=== PATIENT | female | born 1950 | race Caucasian/White ===

== ENCOUNTER 2018-11-26 08:53 | Day surgery (SDC) | payer OTHER ==
--- NOTE | 2018-11-22 15:16 | RAD REPORT ---
EXAM DESCRIPTION: RAD - Chest Pa And Lat (2 Views) - 11/22/2018 2:39 pm CLINICAL HISTORY: preop Chest pain. COMPARISON: No comparisons FINDINGS: The lungs are mildly hyperexpanded but clear. The heart is mildly enlarged in size. No dis placed fractures. Aortic atherosclerosis. IMPRESSION: Mild COPD.
[2018-11-22 15:46] LABS: Absolute Lymphocytes (CBC) 1.4 K/uL (0.7-4.9); Basophils % 0.8 % (0-1.3); Lymphocytes % 22.7 % (15.3-44.8); MPV 8.5 fL (7.6-11.3)
[2018-11-22 15:57] LABS: Potassium 4.2 mmol/L (3.5-5.1)
--- NOTE | 2018-11-23 08:39 | EKG ---
Test Date: 2018-11-22 Test Time: 14:16:33 County Records Management Officer: OFELIA MEASUREMENT RESULTS: Intervals: Rate: 57 MD: 154 QRSD: 98 QT: 434 QTc: 422 Scalf: P: 42 MD: 154 QRS: 9 T: 24 INTERPRETIVE STATEMENTS: Sinus bradycardia Otherwise normal ECG No previous ECG available for comparison Electronically Signed On 11-23-18 08:38:55 CDT by Martin Hilton
[~2018-11-26 08:53] MED LIST: FENTANYL CITR 100 MCG/2 ML ONE; LIDOCAINE 2% MPF 5 ML VIAL ONE; MIDAZOLAM HCL 2 MG/2 ML INJ ONE; ONDANSETRON 4 MG/2 ML VIAL ONE; PROPOFOL 200 MG/20 ML VIAL IV ONE; ROCURONIUM 50 MG/5 ML VIAL IV ONE
[2018-11-26] MEDS ORDERED: CEFAZOLIN/SWI 1gm 1 GM/10 ML SYR ONE (09:01)
[2018-11-26] MEDS ORDERED: Ringers Lactate 1,000 ML IV ONE ×3 (09:01→11:29)
[2018-11-26] MEDS ORDERED: GLYCOPYRROLATE 0.2 MG/ML SYR ONE ×2 (10:39→10:42)
[2018-11-26] MEDS ORDERED: NS 0.9% VIAL 20 ML ONE (10:40)
[2018-11-26] MEDS ORDERED: EPHEDRINE SULF 50 MG/ML VIAL ONE (10:40)
[2018-11-26] MEDS ORDERED: NEOSTIGMINE 1 MG/ML -10 ML VIAL ONE (10:43)
--- NOTE | 2018-11-26 11:12 | P.BOP ---
Preoperative diagnosis: tender scalp masses x2 wit alopecia Postoperative diagnosis: same Primary procedure: 1. Excisional biopsy of tender frontal-parietal scalp mass 3x3 cm Secondary procedure: 2. 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
[2018-11-26 12:05] VITALS: O2SAT 95
[2018-11-26 12:21] VITALS: BP 125/70; TEMP 96.7
[2018-11-26] MEDS ORDERED: CODEINE 30MG/APAP 300MG TAB ONE (12:26)
--- NOTE | 2018-11-28 22:57 | DS ---
Date of Discharge: 11/26/2018 Diagnosis: Tender scalp masses x2. Procedure: Excisional biopsy of frontoparietal and posterior scalp masses. Disposition: Home. Activity: As tolerated. No heavy lifting. Followup: Follow up in my office in 1 week. Call for appointment at [phone]. Keep the area dry fo r 24 to 48 hours, then may shower. Medications: See orders. JOSE/GIUSEPPE Voice ID: [id number] Report ID: [id number]
--- NOTE | 2018-11-28 22:57 | OP ---
Date of Procedure: 11/26/2018 Surgeon: Henry Bernard MD Marketing Representative: MAIKEL Hui. Preoperative Diagnosis: Tender scalp masses x2 with alopecia. Postoperative Diagnosis: Tender scalp masses x2 with alopecia. Procedures: 1.Excisional biopsy of tender frontoparietal scalp mass 3 x 3 cm. 2.Excisional biopsy of tender posterior scalp mass 4 x 3 cm. Estimated Blood Loss: Less than 10 cc. Specimen: Masses x2. Anesthesia: General plus local. Indications: This is the case of a female who comes to us with 2 tender masses. There are so large in different locations, one anterior and one posterior. That is also causing alopecia of the area du e to the pressure of a mass on the skin. This is the deep mass. Both of them were identified and ma rked for us. She wants them removed. Benefits, alternatives, and risks of excision fully explained, which include but are not limited to infection, bleeding, damage to adjacent structures, anesthesia complication, recurrence of alopecia, IA, and even . She also understands this may not relieve any symptoms. She might need more than one surgical intervention. She understood, signed a consent. The area of concern was marked by me and the patient in the holding room. Description Of Procedure: The patient was brought to the operating room, placed in supine position. Anesthesia was given without complication. Patient was placed in lateral decubitus position with pr oper protection. After that, I proceeded to remove these masses. At first, we deal with the anterio r mass in the frontal region. It is about 3 x 3 cm. A wedge incision of the skin was done. Incisio n was carried down to deep subcutaneous tissue and the mass was found completely removed, intact. Th e bone is not involved. The area was irrigated. Hemostasis obtained. Local anesthesia applied. He mostasis obtained once again. We closed this with the help of a chromic and also 3-0 nylon. The pat ient tolerated that procedure well. Sponge count and instrument counts were correct. We also did th e posterior scalp region, the area was done using same technique, which is a wedge incision in the sk in. Incision carried down to deep subcutaneous tissue and the mass was found, very close to the bone , but does not penetrate the bone. The mass was completely excised. The area was irrigated. Hemost asis obtained. Local anesthetic was applied. Irrigation was done. Hemostasis obtained. Then, this was closed once again with chromic and then after that, 2-0 nylon on the skin. This was done in mat tress suture technique. The patient tolerated each procedure well. The area was covered with steril e dressings. The sponge count and instrument counts were correct. Patient was sent to recovery in s table condition. JOSE/GIUSEPPE Voice ID: [id number] Report ID: [id number]
== END 2018-11-26 13:05 | disposition home or self-care (01) ==
LOC: OR 08:53
PROVIDERS: ATTEND Surgery
PROC: 0JB00ZZ Excision of Scalp Subcutaneous Tissue and Fascia, Open Approach (ICD-10-PCS; 2018-11-26)
PROC: 0JB00ZZ Excision of Scalp Subcutaneous Tissue and Fascia, Open Approach (ICD-10-PCS; principal; 2018-11-26 11:15)
DX: L72.11 Pilar cyst (principal); L65.9 Nonscarring hair loss, unspecified; I10 Essential (primary) hypertension; K21.9 Gastro-esophageal reflux disease without esophagitis; Z82.49 Family history of ischemic heart disease and other diseases of the circulatory system; Z80.9 Family history of malignant neoplasm, unspecified
CPT/HCPCS: 93005; 85025; 80048; 36415; 88304; 71046; 11423; 11424; J2704; J2710; J2250; J3010; J0690; J2405; 88305